=== PATIENT | female | born 1950 | race Caucasian/White ===

== ENCOUNTER → 2020-06-17 | Outpatient (CLI) | payer BC ==
[~2020-06-17] MED LIST: TESSALON PERLE100 M1 PO; Z.0.COUMADIN5 MG PO; Z.0.COUMADIN7.5 MG PO; Z.0.EVISTA60 MG PO; Z.0.LEVAQUIN500 MG PO; Z.0.SYNTHROID125 MCG PO; Z.0.TRICOR145 MG PO
== END ==
LOC: MRI 12:59
PROVIDERS: ATTEND Internal Medicine
DX: R51.9 Headache, unspecified (principal)
CPT/HCPCS: 70551

== ENCOUNTER → 2020-07-30 | Outpatient (CLI) | payer MEDICARE | LOC: RAD 14:45 | PROVIDERS: ATTEND Internal Medicine | DX: M54.5 Low back pain (principal) | CPT/HCPCS: 72110 ==

== ENCOUNTER 2021-03-29 11:24 | Emergency (ER) | payer MEDICARE, OTHER ==
[~2021-03-29] VITALS: Ht 172.7 cm; Wt 74.4 kg
[2021-03-29 11:50] LABS: BASOPHILS # (AUTO) 0.1 (0.0-0.1); BASOPHILS % 0.7 % (0.0-1.0); EOSINOPHILS # (AUTO) 0.2 (0.0-0.4); HEMATOCRIT 43.2 % (34.2-44.1); HEMOGLOBIN 14.3 g/dL (12.0-16.0); LYMPHOCYTES # (AUTO) 2.2 (1.0-3.2); LYMPHOCYTES % 28.8 % (18.0-39.1); MEAN CORPUSCULAR HGB CONC 33.1 g/dL (31-35); MEAN CORPUSCULAR VOLUME 96.6 fL (81-99); MONOCYTES # (AUTO) 0.6 (0.2-0.8); MONOCYTES % 7.3 % (4.4-11.3); NEUTROPHILS # (AUTO) 4.7 (2.1-6.9); NEUTROPHILS % 60.9 % (38.7-80.0); PLATELET COUNT 278 x10e3/uL (140-360); RED BLOOD COUNT 4.47 x10e6/uL (3.6-5.1); RED CELL DISTRIBUTION WIDTH 12.1 % (11.7-14.4)
[2021-03-29 12:08] LABS: ALBUMIN 4.5 g/dL (3.5-5.0); ALBUMIN/GLOBULIN RATIO 1.3 (0.8-2.0); ANION GAP 15.1 mmol/L (8-16); CALCIUM 9.6 mg/dL (8.4-10.2); CREATININE, SERUM 1.1 mg/dL (0.57-1.11); POTASSIUM 4.1 mmol/L (3.5-5.1)
[2021-03-29] MEDS ORDERED: IOPAMIDOL 370 MG/ML 200 ML INFUS..BTL INJ ONE (15:30)
[2021-03-29] MEDS ORDERED: SODIUM CHLORIDE 0.9% 50ML 50 ML ONE (15:30)
== END 2021-03-29 14:54 | disposition home or self-care (01) ==
LOC: ER 11:34
DX: R55 Syncope and collapse (principal); S52.502A Unspecified fracture of the lower end of left radius, initial encounter for closed fracture; W01.0XXA Fall on same level from slipping, tripping and stumbling without subsequent striking against object, initial encounter; Y93.01 Activity, walking, marching and hiking; Y92.22 Religious institution as the place of occurrence of the external cause; E03.9 Hypothyroidism, unspecified; E78.5 Hyperlipidemia, unspecified
CPT/HCPCS: 29125; 36415; 70450; 70486; 71260; 72125; 73110; 80053; 83880; 84484; 85025; 85379; 93005; 99284; Q9967

== ENCOUNTER 2024-03-26 12:15 | Emergency (ER) | payer MEDICARE, OTHER ==
[~2024-03-26] VITALS: Ht 172.7 cm; Wt 81.6 kg
[2024-03-26 12:35] VITALS: TEMP 98.1
[2024-03-26] MEDS ORDERED: VENTOLIN HFA18 GM INH (13:52)
[2024-03-26] MEDS ORDERED: AZITHROMYCIN250 MG PO (13:52)
[2024-03-26] MEDS: ALBUTEROL/IPRATROPIUM 3 ML NEB NEB ONE (14:17)
[2024-03-26 14:26] VITALS: PULSE 72; RESP 16
[2024-03-26 14:30] VITALS: PULSE 98; RESP 18; O2SAT 100
[2024-03-26 14:33] VITALS: BP 144/95; PULSE 72; RESP 16; TEMP 98.1; O2SAT 100
== END 2024-03-26 14:32 | disposition home or self-care (01) ==
LOC: ER 12:27
DX: R05.3 Chronic cough (principal); J40 Bronchitis, not specified as acute or chronic; R09.89 Other specified symptoms and signs involving the circulatory and respiratory systems; E78.5 Hyperlipidemia, unspecified; E03.9 Hypothyroidism, unspecified
CPT/HCPCS: 71045; 94640; 94799; 99283